=== PATIENT | female | born 1935 | race Hispanic/Latino ===

== ENCOUNTER 2019-01-02 07:48 | Outpatient (CLI) | payer MEDICARE, OTHER | END 2019-01-02 07:49 | disposition home or self-care (01) | LOC: RAD 07:48 ==

== ENCOUNTER 2019-01-12 09:50 | Outpatient (CLI) | payer MEDICARE, OTHER | END 2019-01-12 09:51 | disposition home or self-care (01) | LOC: RAD 09:51 ==